=== PATIENT | female | born 1985 | race Caucasian/White ===

== ENCOUNTER 2017-01-22 06:20 | Day surgery (SDC) | payer BC, OTHER ==
[~2017-01-22] VITALS: Ht 160 cm; Wt 65.0 kg
[~2017-01-22 06:20] MED LIST: 5-HY50CA PO; BUPIVACAINE 0.5% 50 ML VIAL. ONE; EPINEPHrine VIAL 30 MG/30 ML VIAL ONE; GINK30CA PO; HYDR-971 PO; IBUP-1027 PO; PRAS25CA PO
[2017-01-22] MEDS ORDERED: PROPOFOL 20 ML IV ONE (06:56)
[2017-01-22] MEDS ORDERED: fentaNYL PF VIAL 100 MCG/2 ML VIAL ONE ×2 (06:56→08:07)
[2017-01-22] MEDS ORDERED: LIDOCAINE 2% PF Vial for OR 5 ML VIAL. ONE (06:56)
[2017-01-22] MEDS ORDERED: MORPHINE SULFATE 2 MG/ML DISP.SYRIN. IV PRN (07:00)
[2017-01-22] MEDS ORDERED: HYDROmorphone 2 MG/ML VIAL IV PRN (07:00)
[2017-01-22] MEDS ORDERED: PROCHLORPERAZINE 10 MG/2 ML VIAL. IV PRN (07:00)
[2017-01-22] MEDS ORDERED: IV RINGERS,LACTATED 1000ML 1,000 ML IV SCH (07:00)
[2017-01-22] MEDS ORDERED: ONDANSETRON PF 4 MG/2 ML VIAL. IV PRN (07:00)
[2017-01-22] MEDS ORDERED: LIDOCAINE 1% PF 2 ML VIAL. ID PRN (07:00)
[2017-01-22] MEDS ORDERED: fentaNYL PF VIAL 100 MCG/2 ML VIAL IV PRN ×2 (07:00)
[2017-01-22] MEDS ORDERED: DEXAMETHASONE SOD PHOS 20 MG/5 ML VIAL. ONE (07:51)
[2017-01-22] MEDS ORDERED: FAMOTIDINE 20 MG/2 ML VIAL ONE (07:51)
[2017-01-22] MEDS ORDERED: SEVOFLURANE 61 TO 120 MINUTES. IH ONE (07:51)
[2017-01-22] MEDS ORDERED: ONDANSETRON PF 4 MG/2 ML VIAL. ONE (08:10)
[2017-01-22 08:36] LABS: NEG OBC UR NEG; POS OBC UR POS
--- NOTE | 2017-01-22 09:24 | DISCH ---
DISCHARGE INSTRUCTIONS Condition on Discharge Condition on Discharge: Stable Activity After Discharge Activity Instructions for Disc: Other, see below Other activity instructions: slow advance of activity as tolerated Weight Bearing Status after Di: As tolerated Diet after Discharge Diet after Discharge: Regular Wound Incision Care Wound/Incision Care: Ice to area for comfort, Change dressing Other wound/incision instructi: remove dressing in 2 days may then shower, keep butterfly strips on Contacting the DR. after DC Call your doctor for: Concerns you may have Follow-Up Follow up with: Senthil 7-10 days VICTORIA GONZALES MD Jan 22, 2017 09:24
[2017-01-22] MEDS ORDERED: HYDR-965 PO (09:27)
--- NOTE | 2017-01-22 09:39 | PDOC4 ---
Operative Note Operative Note Date of surgery: 01/22/2017 Preoperative diagnosis: Loose body right knee, possible patellar instability Postoperative diagnosis: Lateral meniscus tear and 2-1/2 cm loose body right knee Operative procedure: Right knee arthroscopy partial lateral meniscectomy, removal loose body from enlarged medial portal Surgeon: Senthil Anesthesia: Gen. Estimated blood loss 5 mL Complications: None Specimens: Loose body to pathology for gross Operative indications: Patient is a 31-year-old female with a fall on the right knee and complaint of patellar instability and locking. 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 On clinical examination she did appear to have apprehension present but no gross dislocation. I had talked to her about arthroscoping the knee to retrieve and deal appropriately with loose body and potentially undergo medial patellofemoral ligament reconstruction for the clinical signs of patellar instability. We talked through risks benefits postoperative course including possibility of infection nerve or blood vessel damage medical or other anesthetic competitions among others. All her questions were answered and she agrees to proceed with operative evaluation and treatment Operative text: Patient was identified procedure verified patient placed in the supine position on the operating table. After adequate amounts of general anesthesia were administered a thigh tourniquet was placed in the right lower extremity was prepped and draped in standard sterile fashion. After timeout was performed patient procedure identified and verified, the right knee was first examined under anesthesia found to have full range of motion and no gross patellar instability. In fact she appeared to have 2 quadrants mobility medial and lateral which was equal to the contralateral left side examined through the drapes. The right leg was then exsanguinated by Esmarch bandage tourniquet inflated to 250 mmHg standard lateral portal was established medial portal established using spinal needle localization and the knee joint was systematically examined. She was noted to have some chondromalacia of the patella no tilt or instability noted medial meniscus was probed and found to be intact as was the ACL and PCL. Lateral meniscus had a radial tear in the body encompassing about 30% of the meniscal tissue overall. This area was radius back to stable tissue using arthroscopic punch and shaver. She did have some mild chondromalacia of the lateral femoral condyle. A large loose body was noted in the posterior medial compartment and was retrieved through the intercondylar notch and found to be about 2.5 cm in greatest dimension on removal through an enlarged medial portal. The source of the loose body appeared to be the lateral aspect of the medial femoral condyle partially on the weightbearing surface adjacent to the intercondylar notch. Due to the chronicity of this defect it appeared filled and largely with fibrocartilage and the osteochondral fragment had no remaining bone on the back side and was devitalized. Given the appearance of the fragment and the site where it came from I elected not to undergo any type of attempted fixation as I felt healing would not be possible. The remainder of the knee joint was examined and a soft tissue and possibly partial meniscal remnant was debrided in the lateral gutter no other loose bodies were noted the joint was drained of fluid medial incision closed with Vicryl suture subcuticular Monocryl and Steri-Strips lateral incision closed with Monocryl Steri-Strips sterile dressings were then applied toes were noted be warm pink following deflation of tourniquet patient was returned recovery room in stable condition having tolerated procedure well VICTORIA GONZALES MD Jan 22, 2017 09:39
[2017-01-22] MEDS: METOCLOPRAMIDE HCL 10 MG/2 ML VIAL. IV PRN ×2 (09:45→10:02)
[2017-01-22] MEDS ORDERED: METOCLOPRAMIDE HCL 10 MG/2 ML VIAL. ONE (09:49)
[2017-01-22] MEDS ORDERED: HYDROcodone/APAP 7.5/325MG 1 TAB TABLET ONE (10:22)
[2017-01-22 10:26] VITALS: BP 140/91
[2017-01-22] MEDS ORDERED: HYDROcodone/APAP 7.5/325MG 1 TAB TABLET PO ONE (10:30)
--- NOTE | 2017-01-24 13:05 | PATHOLOGY ---
PATHOLOGY REPORT * * * * * * * * FINAL DIAGNOSIS: Segment of bone and cartilage, loose body right knee removal: - Osteocartilaginous loose body. (JPM:marisela; 01/24/2017) REPORT ELECTRONICALLY SIGNED BY: Florian Gutierrez M.D. DATE/TIME: 01/24/2017 13:04 * * * * * * * * GROSS PATHOLOGY: The specimen is received in formalin, labeled "Lyndsey Rapp and loose body right knee", is a dome-shaped segment cartilage of bone with one side johnson-white smooth convex and the opposite side irregular concave, measuring 2.8 x 2.0 x 0.3 cm, serially sectioned and a disability representative section submitted for decalcification as A1. (SWS; 01/22/2017) INITIAL CPT CODE(S): A; 78551, 75757 Professional services performed [place] [facility] [place] [address] Technical services performed by [facility] at [address] [place] [address], [place] [address]. SPECIMEN(S) RECEIVED: A.Loose body right knee CLINICAL HISTORY: Closed osteochondral fracture PATIENT: LYNDSEY RAPP /AGE: 1203/28/1985 (Age: 31) PATIENT #: [id number] ALT CASE #: SPECIMEN COLLECTION DATE: 01/22/2017 SPECIMEN RECEIVED DATE: 01/22/2017 [facility] - [address] [place] [address] - PHONE: [phone] * * * END OF REPORT * * *
== END 2017-01-22 11:12 | disposition home or self-care (01) ==
LOC: SURG 06:20
PROVIDERS: ATTEND Orthopaedic Surgery
DX: S83.281A Other tear of lateral meniscus, current injury, right knee, initial encounter (principal); X58.XXXA Exposure to other specified factors, initial encounter; Y93.89 Activity, other specified; Y92.89 Other specified places as the place of occurrence of the external cause; Y99.8 Other external cause status; F32.9 Major depressive disorder, single episode, unspecified; F17.200 Nicotine dependence, unspecified, uncomplicated; Z72.89 Other problems related to lifestyle; Z86.39 Personal history of other endocrine, nutritional and metabolic disease; Z87.39 Personal history of other diseases of the musculoskeletal system and connective tissue
CPT/HCPCS: 29881; 81025; A4215; C1782; J0171; J0690; J0780; J1100; J2405; J2704; J2765; J3010; J3490; S0028; 88304; 88311; J2001

== ENCOUNTER → 2018-02-26 | Outpatient (CLI) | payer OTHER, BC ==
[~2018-02-26] MED LIST changes: -BUPIVACAINE 0.5% 50 ML VIAL. ONE; -EPINEPHrine VIAL 30 MG/30 ML VIAL ONE; +HYDR-3164 PO; +HYDR-3165 PO; -HYDR-971 PO
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
== END | disposition home or self-care (01) ==
LOC: KCIC MRI 10:56
PROVIDERS: ATTEND Family Medicine
DX: M51.37 Other intervertebral disc degeneration, lumbosacral region (principal); M25.78 Osteophyte, vertebrae; R60.0 Localized edema
CPT/HCPCS: 72148

== ENCOUNTER → 2018-06-12 | Outpatient (CLI) | payer OTHER, BC ==
[~2018-06-12] MED LIST changes: +IOHEXOL 180 MG/ML 10 ML VIAL. ONE; +NAPR-695 PO; +PNV1TABL25 PO; +methylPREDNISolone ACETATE 40 MG/ML VIAL. ONE; +methylPREDNISolone ACETATE 80 MG/ML VIAL. ONE
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
== END | disposition home or self-care (01) ==
LOC: PNCL 08:59
PROVIDERS: ATTEND Anesthesiology
DX: M51.16 Intervertebral disc disorders with radiculopathy, lumbar region (principal); Z87.891 Personal history of nicotine dependence; Z98.890 Other specified postprocedural states; Z79.899 Other long term (current) drug therapy; Z82.49 Family history of ischemic heart disease and other diseases of the circulatory system; Z83.49 Family history of other endocrine, nutritional and metabolic diseases; Z72.89 Other problems related to lifestyle
CPT/HCPCS: 62323; J1030; J1040; Q9965

== ENCOUNTER → 2018-06-25 | Outpatient (CLI) | payer OTHER, BC ==
--- NOTE | 2018-06-25 20:23 | PAIN ---
DATE OF SERVICE: 06/25/2018 DIAGNOSES: Lumbar radiculopathy with lumbar degenerative disk disease and lumbar herniated disk. HISTORY OF PRESENT ILLNESS: The patient is a 33-year-old female who returns for followup status post lumbar epidural steroid injection x 1. The patient reports about 40% improvement overall in the low back and right lower extremity. The patient reports still some pain across the back; worse with standing, walking, changing positions; better with lying down or sitting. The patient reports pain is 7 on a scale of 10 at its worst, 5 on average and 3 at its least and is a 5 today. The patient reports it is aching, sharp, dull, tight, shooting in the low back, stabbing, radiating to the legs more on the right side than the left and becoming more constant with walking and standing. The patient reports no new motor or sensory deficits, no new bowel or bladder incontinence or other complaints. PHYSICAL EXAMINATION: VITAL SIGNS: The patient's blood pressure 132/93, pulse 75, respirations 18, temperature is 98.2 degrees Fahrenheit, height is 5 feet 3 inches, weighs 149 pounds. GENERAL: The patient is awake, alert, oriented, appropriate, very pleasant demeanor. HEENT: Head shows normocephalic, atraumatic. Extraocular muscles are intact and symmetrical. Oral cavity: Mucous membranes are moist and pink. Dentition is intact. NECK: Shows anterior throat supple without palpable lymphadenopathy noted. Swallow reflex is symmetrical. CHEST: Shows normal on inspection. Breath sounds clear to auscultation bilaterally. HEART: Shows S1, S2 clear. No murmurs auscultated. ABDOMEN: Soft, nontender, nondistended. No palpable organomegaly is noted. No rebound or guarding demonstrated. BACK: Shows spine grossly in midline, normal appearing thoracic kyphosis and lumbar lordotic curvature. Lumbar paraspinous musculature shows symmetrical on inspection. On palpation shows some moderate tenderness diffusely but only diffusely without radiation. The patient shows good rotational motion of lumbar spine without difficulty or pain reported. EXTREMITIES: The patient's lower extremities show deep tendon reflexes 2+ in the patellar, 1+ tendo calcaneus tendons. Motor exam is approximately 4 on a scale of 5 on the right, 5/5 on the left dorsiflexion and extension. Peripheral pulses are 1+ posterior tibia. No peripheral edema is noted bilaterally. Options were discussed with the patient. The patient's old chart was reviewed as her current medication regimen and updated. Current review of systems is updated today as well. We will proceed with a second in the series of lumbar epidural steroid injection today with fluoroscopic guidance. Risks were again discussed including, but not limited to bleeding, infection, possibility of epidural hematoma and subsequent neurological compromise, dural puncture, headaches, spinal cord and/or nerve damage, side effects of steroid medication and poor results regarding pain control. The patient understands and wishes to proceed. The patient to return to clinic in approximately 2 weeks for followup, was counseled on return appointment, activity level and side effects to be aware of. DIAGNOSIS: Lumbar radiculopathy with lumbar degenerative disk disease, lumbar herniated disk. PROCEDURE: Lumbar epidural steroid injection, translaminar approach at L5-S1 level using C-arm fluoroscopic guidance under sterile prep and drape using local anesthetic. MEDICATION INJECTED: A total of 120 mg Depo-Medrol plus 10 mL of preservative-free normal saline and 2 mL of Isovue for contrast. CONDITION AT DISCHARGE: Stable. The patient tolerated the procedure well, had no complications. SUZE VELÁSQUEZ MD DR: NEAL/louise JOB#: [id number] / [id number]
== END | disposition home or self-care (01) ==
LOC: PNCL 10:21
PROVIDERS: ATTEND Anesthesiology
DX: M51.16 Intervertebral disc disorders with radiculopathy, lumbar region (principal); Z98.890 Other specified postprocedural states
CPT/HCPCS: 62323; J1030; J1040; Q9965

== ENCOUNTER → 2019-08-12 | Outpatient (CLI) | payer BC ==
[~2019-08-12] MED LIST changes: -IOHEXOL 180 MG/ML 10 ML VIAL. ONE; -methylPREDNISolone ACETATE 40 MG/ML VIAL. ONE; -methylPREDNISolone ACETATE 80 MG/ML VIAL. ONE
--- NOTE | 2019-08-12 16:42 | RAD ---
LUMBAR SPINE WO CONTRAST History: Low back pain. Right leg weakness. Technique: Multiplanar, multi sequential MR imaging was performed of the lumbar spine. Comparison: February 26, 2018. Findings: Normal vertebral body height and alignment. No fracture. Increased degenerative endplate edema compared to prior L5-S1. Conus terminates at the normal location. No evidence of nerve root clumping. L1-L2: No canal or neuroforaminal narrowing. L2-L3: No canal or neuroforaminal narrowing. L3-L4: Minimal disc bulge. Mild facet arthropathy. No canal or neuroforaminal narrowing. L4-L5: No canal or neuroforaminal narrowing. Mild facet arthropathy. L5-S1: Disc height loss. Broad-based disc bulge with superimposed right central disc extrusion extending inferiorly. Slight abutment of the bilateral descending S1 nerve roots, right greater than left. No canal narrowing. Moderate to severe left and moderate right neuroforaminal narrowing due to disc bulges, increased compared to prior. Mild facet arthropathy. Impression: 1. Increased L5-S1 spondylosis and degenerative endplate edema. 2. Bilateral L5-S1 neuroforaminal narrowing, left greater than right, progressed compared to prior. 3. L5-S1 right subarticular disc extrusion contacting the descending right S1 nerve root, unchanged. Electronically signed by: Ernie Ribeiro DO (08/12/2019 4:39 PM) [id number]
== END | disposition home or self-care (01) ==
LOC: MRI 15:24
PROVIDERS: ATTEND Family Medicine
DX: M47.27 Other spondylosis with radiculopathy, lumbosacral region (principal); M48.07 Spinal stenosis, lumbosacral region
CPT/HCPCS: 72148

== ENCOUNTER → 2019-10-26 | Outpatient (CLI) | payer BC ==
--- NOTE | 2019-10-26 16:47 | RAD ---
Examination: MRI of the right knee without contrast HISTORY: History of medial knee pain COMPARISON: 12/13/2016 TECHNIQUE: Multiplanar, multisequence MR imaging of the right knee was performed without contrast. FINDINGS: The anterior cruciate ligament, posterior cruciate ligament appear intact. The medial meniscus appears intact. There is blunting of the body of the lateral meniscus likely prior surgical changes or prior tear. Probable surgical changes of osteochondral defect with mild increased T2 signal identified in the lateral femoral condyle. 1 cm cartilage loss identified in the posterior femoral condyle in the posterior flexion zone. The extensor mechanism appears intact. Small knee joint effusion. The medial collateral ligament, lateral collateral ligamentous complex including the fibular collateral ligament, biceps femoris tendon appear intact The medial retinaculum, lateral retinaculum appear intact. The TG-TT distance measures 2 cm. IMPRESSION: 1. Probable surgical changes of osteochondral defect with mild increased T2 signal /edema identified in the lateral femoral condyle. 1 cm cartilage loss identified in the posterior femoral condyle in the posterior flexion zone. 2. Blunting of the body of the lateral meniscus likely prior surgical changes. 3. Small knee joint effusion. 4. Lateral patellar malalignment with TG-TT distance measuring 2 cm. Electronically signed by: Serjio Desai MD (10/26/2019 4:44 PM) [id number]
== END | disposition home or self-care (01) ==
LOC: MRI 09:36
PROVIDERS: ATTEND Orthopaedic Surgery
DX: M25.461 Effusion, right knee (principal); M21.261 Flexion deformity, right knee
CPT/HCPCS: 73721